=== PATIENT | female | born 2000 | race Two or more races ===

== ENCOUNTER 2022-02-07 09:06 | Emergency (ER) | payer OTHER ==
[~2022-02-07] VITALS: Ht 157.5 cm; Wt 81.8 kg
[2022-02-07] MEDS ORDERED: ETON68IM4 SD (09:14)
[2022-02-07] MEDS ORDERED: DOXY-354 PO (09:35)
[2022-02-07 09:40] VITALS: BP 136/86
[2022-02-07] MEDS ORDERED: ERYTHROMYCIN 0.5% 3.5 GM TUBE OPHTHALMIC OINTMENT OU ONE (09:45)
== END 2022-02-07 10:11 | disposition home or self-care (01) ==
LOC: EMS 09:09
DX: H10.33 Unspecified acute conjunctivitis, bilateral (principal); F10.20 Alcohol dependence, uncomplicated
CPT/HCPCS: 99283

== ENCOUNTER 2022-10-01 14:43 | Emergency (ER) | payer OTHER ==
[~2022-10-01] VITALS: Ht 157.5 cm; Wt 88.6 kg
[~2022-10-01 14:43] MED LIST: DOXY-354 PO; ETON68IM4 SD
[2022-10-01] MEDS ORDERED: PREN-64 PO (14:51)
[2022-10-01 18:17] VITALS: BP 122/78
== END 2022-10-01 18:48 | disposition home or self-care (01) ==
LOC: EMS 14:45
DX: O20.0 Threatened abortion (principal); Z3A.23 23 weeks gestation of pregnancy
CPT/HCPCS: 76805; 99284; Z7502

== ENCOUNTER 2024-02-22 19:31 | Emergency (ER) | payer OTHER ==
[~2024-02-22] VITALS: Ht 157.5 cm; Wt 82.7 kg
[~2024-02-22 19:31] MED LIST changes: -DOXY-354 PO; -ETON68IM4 SD; +PREN-64 PO
[2024-02-22 19:51] VITALS: BP 129/77; PULSE 68; RESP 18; TEMP 98.6; O2SAT 100
== END 2024-02-23 03:04 | disposition left against medical advice (07) ==
LOC: EMS 19:31
DX: G89.29 Other chronic pain (principal); Z53.21 Procedure and treatment not carried out due to patient leaving prior to being seen by health care provider